=== PATIENT | male | born 1945 | race Caucasian/White ===

== ENCOUNTER 2019-03-18 02:26 | Inpatient (IN) ==
[2019-03-18] MEDS ORDERED: Sodium Chloride 0.9% 1,000 ML PRIMARY IV ONE ×3 (02:49→19:43)
[2019-03-18 02:57] LABS: BASOPHILS # (AUTO) 0.02 10*3/UL; BASOPHILS % (AUTO) 0.2 % (0-1); EOSINOPHILS # (AUTO) 0.04 10*3/UL; EOSINOPHILS % (AUTO) 0.5 % (0-8); Hematocrit [HCT] 48.2 % (42.0-52.0); LYMPHOCYTES # (AUTO) 0.93 10*3/uL; MEAN CORPUSCULAR HEMOGLOBIN 30.2 PG (27-31); MEAN CORPUSCULAR HGB CONC 33.2 g/dL (33-37); MEAN CORPUSCULAR VOLUME 91.1 FL (80-90); MEAN PLATELET VOLUME 10.1 FL (7.4-12.2); MONOCYTES # (AUTO) 0.66 10*3/UL (0.3-0.8); MONOCYTES % (AUTO) 7.8 % (5-15); NEUTROPHILS # (AUTO) 6.75 10*3/UL; NEUTROPHILS % (AUTO) 80.3 % (50-80); RED BLOOD COUNT 5.29 10^6/uL (4.70-6.10)
[2019-03-18 03:06] LABS: BLOOD UREA NITROGEN 32 mg/dL (7-22); BUN/CREATININE RATIO 21.33 (6-20); SERUM ALBUMIN 4.6 g/dL (3.5-4.8)
[2019-03-18 03:13] LABS: VENOUS PH 7.36 (7.32-7.42)
[2019-03-18 03:14] LABS: VENOUS PCO2 43.5 mmHg (45-55)
[2019-03-18 03:17] LABS: BILIRUBIN,URINE SMALL (NEG); CLARITY,URINE CLEAR (CLEAR); COLOR,URINE YELLOW (Y); GLUCOSE, URINE (UA) NEGATIVE (NEG); OCCULT BLOOD,URINE NEGATIVE (NEG); PROTEIN,URINE 30 mg/dl (NEG); UROBILINOGEN,URINE 0.2 EU/dL (0.2)
[2019-03-18 03:17] LABS: PLATELET MORPHOLOGY COMMENT NORMAL MORPHOLOGY (NORM); RBC MORPHOLOGY COMMENT NORMAL MORPHOLOGY (NORM); WBC MORPHOLOGY COMMENT NORMAL MORPHOLOGY (NORM)
[2019-03-18 03:18] LABS: URINE SAMPLE TYPE CATH SPECIMEN
[2019-03-18 03:22] LABS: BACTERIA,URINE RARE; RBC,URINE 0-1 /hpf; URINE CASTS FEW; URINE CRYSTALS RARE; URINE SPECIFIC GRAVITY - MAN 1.025; WBC,URINE 0-1
[2019-03-18 03:33] LABS: AMPHETAMINE SCREEN NEGATIVE (NEG); CANNABINOID SCREEN,URINE NEGATIVE (NEG); COCAINE SCREEN NEGATIVE (NEG); METHADONE URINE SCREEN NEGATIVE (NEG); METHAMPHETAMINES SCREEN,URINE NEGATIVE (NEG); OPIATE SCREEN,URINE NEGATIVE (NEG)
--- NOTE | 2019-03-18 04:01 | DI ---
EXAM: CT Head Without Intravenous Contrast CLINICAL HISTORY: ITS.REASON confusion Physician Notes: Tech Comments: TECHNIQUE: Axial computed tomography images of the head/brain without intravenous contrast. Coronal and sagittal reformatted images were created and reviewed. COMPARISON: No relevant prior studies available. FINDINGS: Brain: Severe chronic small vessel ischemic change. Global volume loss. No intracranial hemorrhage, mass effect or edema. No evolving territorial infarction. Ventricles: Unremarkable. No ventriculomegaly. Bones/joints: Unremarkable. No acute fracture. Soft tissues: Unremarkable. Sinuses: Unremarkable as visualized. No acute sinusitis. Mastoid air cells: Unremarkable as visualized. No mastoid effusion. Orbits: Bilateral lens replacements. IMPRESSION: Severe chronic small vessel ischemic change. Global volume loss. No acute intracranial abnormality.
--- NOTE | 2019-03-18 04:30 | PDOC ---
General Adult HPI - General Chief Complaint: General Medical Stated Complaint: DCD REPORTS PATIENT IS COMBATIVE Date Seen by Provider: 03/18/19 Time Seen by Provider: 02:45 Source: POSITIVE: EMS Exam Limitations: POSITIVE: No limitations Nurse's Notes Reviewed & Considered: Yes EMS Report Reviewed & Considered: Verbal - History of Present Illness Initial Comment: The patient is a 73-year-old male who is a resident of the [facility] on the Alzheimer's unit. Patient is transferred by ambulance to the emergency room because the patient has reportedly been "somnolent". In my discussions with the [facility] nursing staff, the patient has a history of dementia and his speech is normally very difficult to understand; his records from the [facility] states that he has "a facial ". The patient is frequently combative according to the [facility] staff and he does require medication with Ativan. Patient last received a dose of Ativan this evening. Patient was seen in the emergency room here yesterday morning with a chief complaint of vomiting times one, according to review of the emergency room records. At that time his CBC was normal, sodium was 146 and BUN was 23. long-term records reveal the patient is a full CODE STATUS. Nursing staff indicates that they're not aware of any falls. No fevers or chills. He does not appear to be in any pain. On arrival to the emergency room the patient is very somnolent but arousable and he will vocalize. Appropriately responsive to pain. He will not follow commands. Have you received a tetanus shot in the past 10 years?: Unknown Body Location Affected: REPORTS: Other (Confusion and somnolence as above; history of advanced dementia; the nurse at the [facility] staff thinks that he has a past history of alcohol abuse.) Timing: REPORTS: Gradual Duration: <24 hours Severity: Moderate Quality: REPORTS: Other (No apparent pain anywhere) Context: REPORTS: None Modifying Factors: improves with: Vomiting (Patient reportedly had an episode of vomiting yesterday, which precipitated his emergency room visit yesterday) Similar Symptoms Previously: Yes Recent Care Received: REPORTS: Recently Seen, Treated by Any Prior Injuries Related to Current Complaint?: No - Patient Home Medications Home Medications: Home Medications celecoxib 200 mg capsule 200 mg PO DAILY cap 03/16/19 sennosides 8.6 mg-docusate sodium 50 mg tablet 1 tab PO QDAY PRN tab 03/16/19 simvastatin 40 mg tablet 40 mg PO QHS 03/16/19 Acetaminophen [8Hr Arthritis Pain Relief] 650 mg PO Q4H PRN PRN 03/17/19 Buprenorphine 1 patch TOPICAL .WEEKLY 03/17/19 Hydroxyzine HCl 25 mg PO Q6H PRN PRN 03/17/19 LORazepam Inj [Ativan Inj] 2 mg IM Q4H PRN PRN 03/17/19 - Patient Allergies Allergies/Adverse Reactions: Allergies Allergy/AdvReac Type Severity Reaction Status Date / Time levofloxacin [From Levaquin] Allergy Severe PARALYSIS Verified 03/18/19 02:30 Past Medical History - heen HEENT History: Other (please comment) Additional HEENT History: b/l sensorineural hearing loss. b/l tinnitus Cardiovascular History: Hyperlipidemia Respiratory History: Denies History Gastrointestinal History: Other (please comment) Additional Gastrointestinal History: constipation Genitourinary History: Denies History Endocrine History: Denies History Musculoskeletal History: Osteoporosis, Osteoarthritis Neurological History: Aphasia Blood Disorders: Denies History Psychiatric History: Other (please comment) Additional Psychiatric History: dementia Male Reproductive History: Denies History Cancer History: Denies History In Past Year Been Physically Harmed or Verbally Threatened: No History of MDRO: No Tobacco Use: Never Smoker In the Past 12 Months, Have Used or Abuse Any Substance: None Previous Surgical History: No Significant Family History: No pertinent family hx Past Medical History Reviewed: Reviewed - No Changes ROS - Limitations ROS Limitations: Clinical Condition (Dementia and somnolence, probably due to recent Ativan) Constitution: REPORTS: Recent Illness (Reportedly had some vomiting yesterday morning) Cardiovascular: REPORTS: Denies Cardiac Symptoms Respiratory: REPORTS: Denies Resp Symptoms Neurological: REPORTS: Headache Gastrointestinal: REPORTS: Vomitting (Yesterday according to recent medical) Endocrine: REPORTS: Denies Symptoms Musculoskeletal: REPORTS: Denies MS Symptoms Genitourinary: REPORTS: Denies Symptoms Eyes: REPORTS: Denies Symptoms ENT: REPORTS: Denies Symptoms Skin: REPORTS: Denies Skin Symptoms Lympathic: REPORTS: Denies Lympathic Symptoms Immunologic: POSITIVE: Denies Symptoms Psychiatric: POSITIVE: Confusion General Adult Exam - General Appearance General Appearance: POSITIVE: No Acute Distress, No Evidence of Trauma, Gita rgic - HEENT HEENT: POSITIVE: Head Inspection Nml, Eyes Inspection Nml, Ears Inspection Nml, Nose Inspection Nml, Oral/Dental Inspect. Nml, Pharynx Inspect. Nml, PERRL, EOMI - Pupils Pupil Size: 3 mm: Bilateral (PERRLA) - Neck Neck: POSITIVE: Normal Inspection, Thyroid Normal - Respiratory Respiratory: POSITIVE: No Respiratory Distress, Breath Sounds Normal, Chest Non- Tender - Cardiovascular Cardiovascular: POSITIVE: Regular Rate & Rhythm, No Murmur, No Gallop, PMI Normal Peripheral Pulses: Radial (R): 2+, Radial (L): 2+ - Abdomen Abdomen: Soft: (All Quadrants), Normal Bowel Sounds: (All Quadrants), Denies Tenderness: (All Quadrants), No Splenomegaly: (All Quadrants), No Hepatomegaly: (All Quadrants), No Guarding: (All Quadrants), No Rebound: (All Quadrants), No Palpable Pulse: (All Quadrants), No Palpabale Mass: (All Quadrants), No Distention: (All Quadrants), No Rigidity: (All Quadrants) - Back Back: POSITIVE: Normal Inspection - Skin Skin: POSITIVE: Normal Color, Warm, Dry, No Rash - Extremities Extremity: Non-Tender: (All Extremities), Normal ROM: (All Extremities), Normal Inspection: (All Extremities) - Neurological / 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 NEGATIVE: Affect Apporpriate (Patient somnolent and when aroused confused; this is reportedly a chronic condition according to [facility] staff), Oriented X3 General Adult Progress - Results Reviewed by me Xrays/CTs/US Reviewed by me: Yes Discussed with Radiologist: Yes Radiology Findings: CT scan head without contrast normal except for age-related changes according to radiologist Lab Results Reviewed by Me: Yes (BUN now 32, sodium now up to 149. Total creatine kinase 599) Lab Results:: Laboratory Results 03/18/19 03/18/19 03/18/19 02:49 02:50 02:50 WBC 8.41 RBC 5.29 Hgb 16.0 Hct 48.2 MCV 91.1 H MCH 30.2 MCHC 33.2 RDW Std Deviation 45.6 RDW Coeff of Juanita 13.7 Plt Count 215 MPV 10.1 Immature Gran % (Auto) 0.1 Neut % (Auto) 80.3 H Lymph % (Auto) 11.1 [place] % (Auto) 7.8 Eos % (Auto) 0.5 Baso % (Auto) 0.2 Immature Gran # (Auto) 0.01 Neut # (Auto) 6.75 Lymph # (Auto) 0.93 [place] # (Auto) 0.66 Eos # (Auto) 0.04 Baso # (Auto) 0.02 WBC Morphology Comment Normal morphology Plt Morphology Comment Normal morphology RBC Morph Comment Normal morphology VBG pH 7.36 VBG pCO2 43.5 L VBG HCO3 24.7 VBG Base Excess -1 Sodium 149 H Potassium 4.0 Chloride 109 Carbon Dioxide 23 Anion Gap 17 BUN 32 H Creatinine 1.5 BUN/Creatinine Ratio 21.33 H Glucose 125 H Calculated Osmolality 315.0 H Calcium 10.1 Total Bilirubin 1.0 AST 45 ALT 24 Alkaline Phosphatase 80 Total Creatine Kinase 599 H Troponin I C-Reactive Protein 2.0 H Total Protein 7.6 Albumin 4.6 Globulin 3.0 Albumin/Globulin Ratio 1.50 Ur Collection Type Urine Color Urine Clarity Urine pH Ur Specific [place] U Specif Grav (Refrac) Urine Protein Urine Glucose (UA) Urine Ketones Urine Occult Blood Urine Nitrate Urine Bilirubin Urine Urobilinogen Ur Leukocyte Esterase Urine RBC Urine WBC Ur Squamous Epith Cells Ur Renal Epithelial Cell Urine Crystals Urine Bacteria Urine Casts Urine Mucus Urine Trichomonas Urine Yeast Ur Culture Indicated? Urine Opiates Screen Ur Buprenorphine Ur Oxycodone Screen Urine Methadone Screen Ur Propoxyphene Screen Acetaminophen < 10.0 Barbiturate Screen U Tricyclic Antidepress Phencyclidine Screen Amphetamines Screen U Methamphetamines Scrn Benzodiazepines Screen Cocaine Screen U Marijuana (THC) Screen Serum Alcohol < 10 03/18/19 03/18/19 02:50 03:10 WBC RBC Hgb Hct MCV MCH MCHC RDW Std Deviation RDW Coeff of Juanita Plt Count MPV Immature Gran % (Auto) Neut % (Auto) Lymph % (Auto) [place] % (Auto) Eos % (Auto) Baso % (Auto) Immature Gran # (Auto) Neut # (Auto) Lymph # (Auto) [place] # (Auto) Eos # (Auto) Baso # (Auto) WBC Morphology Comment Plt Morphology Comment RBC Morph Comment VBG pH VBG pCO2 VBG HCO3 VBG Base Excess Sodium Potassium Chloride Carbon Dioxide Anion Gap BUN Creatinine BUN/Creatinine Ratio Glucose Calculated Osmolality Calcium Total Bilirubin AST ALT Alkaline Phosphatase Total Creatine Kinase Troponin I < 0.012 C-Reactive Protein Total Protein Albumin Globulin Albumin/Globulin Ratio Ur Collection Type Cath specimen Urine Color Yellow Urine Clarity Clear Urine pH 5.0 Ur Specific [place] 1.025 U Specif Grav (Refrac) 1.025 Urine Protein 30 A Urine Glucose (UA) Negative Urine Ketones 15 Urine Occult Blood Negative Urine Nitrate Negative Urine Bilirubin Small Urine Urobilinogen 0.2 Ur Leukocyte Esterase Negative Urine RBC 0-1 Urine WBC 0-1 Ur Squamous Epith Cells None Ur Renal Epithelial Cell None Urine Crystals Rare Urine Bacteria Rare Urine Casts Few Urine Mucus Moderate Urine Trichomonas None Urine Yeast None Ur Culture Indicated? Culture not set Urine Opiates Screen Negative Ur Buprenorphine Positive H Ur Oxycodone Screen Negative Urine Methadone Screen Negative Ur Propoxyphene Screen Negative Acetaminophen Barbiturate Screen Negative U Tricyclic Antidepress Negative Phencyclidine Screen Negative Amphetamines Screen Negative U Methamphetamines Scrn Negative Benzodiazepines Screen Positive H Cocaine Screen Negative U Marijuana (THC) Screen Negative Serum Alcohol CBC and BMP: 03/18/19 02:50 03/18/19 02:50 EKG Interpreted/Reviewed By Me:: Yes (normal sinus rhythm; normal) EKG Interpretation:: POSITIVE: Normal Sinus Rhythm, Normal Rate, Normal Intervals, Normal Yeso, Normal QRS, Normal ST/T - Patient's Progress Pain Medication Addressed: POSITIVE: Not Applicable School/Work Release Addressed: POSITIVE: Not Applicable Re-Examine Time: 04:20 Re-Examine Comment: Patient becoming more active and alert. Toxicology screen was positive for benzodiazepines and pupil nor freeing. Patient is more dehydrated now than he was less than 24 hours ago. His sodium is now 149 and w as 146 yesterday. BUN is up to 32, it was 23 yesterday morning. Blood cultures were drawn. Total creatine kinase 599. Nursing staff at [facility] is not aware that he's had any further vomiting. Case discussed with hospitalist, Dr. Roberts, who has admitted the patient. Status: POSITIVE: Improved (More active and alert), Re-Examined Antibiotics Given: No - Consult Consult (If Yes, Name of Consulting MD & Time Called): Yes (Dr. Roberts, hospitalist, [id number]) Consulting MD will see pt:: POSITIVE: [facility] [place] Patient Care Time - Estimated PCT Patient Care Time (In Minutes): 50 Vital Signs - Recent Vital Signs Vital Signs: Vital Signs (Last 8 hours) Temp Pulse Resp BP Pulse Ox 03/18/19 02:36 97.7 F 111 H 14 113/84 96 - VS Reviewed Vital Signs Reviewed: Yes Discharge Clinical Impression: Dehydration, Confusion, Dementia Discharge Disposition: Admit to Inpatient Condition: Fair Follow Up With: JULIO CESAR GUERRA [Primary Care Provider] - Date Decision to Admit to Inpatient: 03/18/19 Time Decision to Admit to Inpatient: 04:00
[2019-03-18] MEDS ORDERED: DOCUSATE 100 MG CAPSULE PO PRN (04:52)
[2019-03-18] MEDS ORDERED: D5W 1,000 ML PRIMARY IV SCH ×2 (04:52→14:53)
[2019-03-18] MEDS ORDERED: ONDANSETRON 4 MG/2 ML VIAL IVP PRN ×2 (04:52→14:53)
[2019-03-18] MEDS ORDERED: CALCIUM CARBONATE 500 MG (TUMS) CHEWABLE TABLET PO PRN (04:52)
[2019-03-18] MEDS ORDERED: ACETAMINOPHEN 325 MG TABLET PO PRN ×2 (04:52→08:30)
[2019-03-18] MEDS ORDERED: LIDOCAINE W/ SODIUM BICARB 0.5 ML SYR SUBD PRN ×2 (04:52→14:53)
[2019-03-18] MEDS ORDERED: ACETAMINOPHEN PO PRN (04:52)
[2019-03-18] MEDS ORDERED: Senna/Docusate Tab 1 TAB TAB PO PRN (04:52)
[2019-03-18] MEDS ORDERED: LIDOCAINE HCL 2 % 10 ML JELLY URO-JECT TOPICAL PRN (04:54)
[2019-03-18] MEDS ORDERED: Sodium Chloride 0.9% 1,000 ML PRIMARY IV SCH (05:00)
[2019-03-18] MEDS ORDERED: HALOPERIDOL LACTATE 5 MG/1 ML AMPULE IM ONE (05:19)
[2019-03-18] MEDS ORDERED: HALOPERIDOL LACTATE 5 MG/1 ML AMPULE IVP ONE (05:19)
[2019-03-18] MEDS ORDERED: HALOPERIDOL LACTATE 5 MG/1 ML AMPULE ONE (05:22)
[2019-03-18 05:25] LABS: BLOOD UREA NITROGEN 32 mg/dL (7-22); BUN/CREATININE RATIO 22.85 (6-20)
[2019-03-18] MEDS ORDERED: DIAZEPAM 10 MG/2 ML (5 MG/1 ML) CARPUJECT IVP ONE ×2 (05:31→05:57)
[2019-03-18] MEDS ORDERED: DIAZEPAM 10 MG/2 ML (5 MG/1 ML) CARPUJECT ONE (05:33)
[2019-03-18] MEDS ORDERED: DIAZEPAM 10 MG/2 ML (5 MG/1 ML) CARPUJECT IVP PRN ×3 (05:37→14:53)
[2019-03-18] MEDS ORDERED: HALOPERIDOL LACTATE 5 MG/1 ML AMPULE IVP PRN (05:37)
[2019-03-18] MEDS ORDERED: Prochlorperazine Edisylate Inj 10mg/2ml vial IVP PRN ×2 (05:42→14:53)
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
[2019-03-18] MEDS: HEPARIN 5000 UNIT/1 ML SUBCUT SCH ×3 (07:37→21:04)
[2019-03-18] MEDS: D5W 1,000 ML PRIMARY IV SCH ×2 (07:38→14:25)
--- NOTE | 2019-03-18 08:02 | DI ---
XR CXR 1VW 03/18/2019 2:49 AM HISTORY: [facility] [place] DI ^confusion Comparison: Acute abdominal series 03/17/2000 maintained. Findings: A single portable frontal view of the chest is submitted. Images demonstrate normal aeration without focal consolidation. There is no large pneumothorax or ple ural effusion. The cardiomediastinal silhouette is within normal with atheromatous calcifications in the arch of the tortuous thoracic aorta. There is slight asymmetry of the aortic arch. The osseous st ructures are grossly unremarkable. Impression: 1. No radiographic evidence of acute cardiopulmonary disease. 2. There is slight asymmetry of the aortic arch. A CT angiogram of the thoracic aorta may be obtained for further characterization as clinically indicated.
[2019-03-18] MEDS ORDERED: ACETAMINOPHEN 500 MG TABLET PO SCH (09:00)
[2019-03-18 10:27] LABS: BLOOD UREA NITROGEN 31 mg/dL (7-22); BUN/CREATININE RATIO 22.14 (6-20)
[2019-03-18] MEDS ORDERED: GEODON 20 MG IM SCH (11:12)
[2019-03-18] MEDS ORDERED: RIVASTIGMINE 4.6 MG/24 HR PATCH TRANSDERM ONE (11:13)
[2019-03-18] MEDS ORDERED: ChlordiazePOXIDE 25mg Cap (ETOH withdrawal) PO PRN (11:50)
[2019-03-18] MEDS ORDERED: LORazepam Inj(ETOH withdrawal) 2 MG/ML VIAL IVP PRN ×2 (11:50→14:53)
[2019-03-18] MEDS ORDERED: Dexmedetomidine/NS 400 MCG/100 ML INFUS..BTL IV SCH ×2 (12:15→14:53)
[2019-03-18] MEDS: TAMSULOSIN 0.4 MG CAPSULE PO SCH ×2 (12:30→12:31)
[2019-03-18] MEDS ORDERED: ZIPRASIDONE 20 MG VIAL IM SCH (13:45)
[2019-03-18] MEDS ORDERED: ETOMIDATE 2 MG/1 ML - 20 ML IVP ONE ×2 (15:14→15:30)
[2019-03-18] MEDS ORDERED: SUCCINYLCHOLINE CHLORIDE 20 MG/1 ML - 10 ML ONE (15:14)
[2019-03-18] MEDS ORDERED: ROCURONIUM 10 MG/1 ML - 5 ML VIAL IVP ONE ×2 (15:30→15:33)
[2019-03-18 15:47] LABS: BLOOD UREA NITROGEN 25 mg/dL (7-22)
[2019-03-18] MEDS: Midazolam Inj 100 MG in Sodium Chloride 0.9% 80 ML IV SCH ×3 (16:20→22:01)
--- NOTE | 2019-03-18 17:25 | DI ---
XR CXR 1VW 03/18/2019 4:36 PM HISTORY: [facility] [place] DI ^confirm central line placement Comparison: Portable chest x-ray from earlier the same day. Findings: A single portable frontal view of the chest is submitted. There is an endotracheal tube mid line with the tip approximately 3.6 cm above the luiz. There is a right IJ central venous catheter with the tip projecting over the cavoatrial junction. An enteric tube courses midline with the side-p ort at the level of the gastroesophageal junction and the tip projecting over the left upper quadrant . Images demonstrate hypoinflation without focal consolidation. There is no large pneumothorax or pleur al effusion. The cardiomediastinal silhouette is within normal limits with atheromatous calcification s in the aortic arch. The osseous structures are not significantly changed. Impression: 1. Lines and tubes as above. 2. No radiographic evidence of acute cardiopulmonary disease.
[2019-03-18 17:31] LABS: BLOOD UREA NITROGEN 29 mg/dL (7-22); BUN/CREATININE RATIO 26.36 (6-20); SERUM ALBUMIN 3.7 g/dL (3.5-4.8)
--- NOTE | 2019-03-18 17:41 | PDOC(PROG) ---
General Note Progress Note: Intubation note. I was called to the ICU because the patient's deteriorating respiratory status and the need for intubation. An IV was present in the patient's right arm and decision was made to continue with intubation. Patient received 1.2 mg/kg of rocuronium for a total of 100 mg, and 25 mg of etomidate. Under my direct supervision respiratory therapist Oscar intubated using a Chirinos straight blade and an 8 endotracheal tube. He is able to pass the tube with the first attempt and good breath sounds were heard bilaterally with fogging of the tube, color change of the CO2 monitor, and no breath sounds appreciated in the belly. A endotracheal tube was then passed and post intubation x-ray showed endotracheal tube at the luiz. It was pulled back approximately 2 cm and secured. The internal jugular central line placed by Dr. Roberts was in good position and the orogastric tube was in good position. Patient was started on Precedex.
[2019-03-18 18:48] LABS: ABG PCO2 40 MMHG (34-38); ABG PO2 81 MMHG (65-75); COLLECTION SITE L RADIAL
[2019-03-18 18:49] LABS: ABG BASE EXCESS 0 MMOL/L (-2-2); ABG OXYGEN SATURATION 96 % (90-100); ALLEN TEST Y
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
--- NOTE | 2019-03-18 19:02 | PROCEDURE1 ---
Procedure - - Procedure Performed: Central Line : Non Tunneled Procedure Note: Procedure performed: Right Internal jugular central venous catheter placement Indication for procedure: Loss of IV, respiratory failure in the setting of apparent alcohol withdrawal, need for continued sedation, need for airway protection, need for medications, risks including possible arterial puncture, pneumothorax, and localized pain. Benefits for medication administration, blood draws, hemodynamic monitoring, and management of those noted in indications for procedure above. Consent was implied as I could not get a signature from the patient due to his mental state. His nephew had instructed me earlier to do everything I could to support the patient Description of procedure: The patient was prepped and draped in the usual fashion with a full body drape. Ultrasound guidance was used to identify the right internal jugular vein. The area was cleansed with chlorhexidine. Lidocaine was used for local anesthesia. Using an introducer needle attached to a 5 mL syringe, this was inserted and angled towards the ipsilateral nipple, with ultrasound guidance as well. There was a flash of venous blood as the internal jugular vein was cannulated via the introducer needle. A guidewire was inserted through the needle into the internal jugular vein and the needle was removed over the wire. A 10 blade was then used to perform a small dermatotomy at the needle insertion site. The venous dilator was then placed over the guidewire using Seldinger technique, and then removed. 4 port central venous catheter was then placed over the guidewire inserted into the internal jugular vein and the guidewire was removed. All ports were flushed with normal saline. All ports had draw back. The catheter was sutured into place, and lying position was confirmed with chest x-ray. A postprocedure x-ray showed lying in the correct position with the tip just above the cavoatrial junction, no evidence of pneumothorax. I personally reviewed the chest X-ray. Complications: No apparent complications at the time of the procedure Disposition: Patient remains in the ICU in critical condition
[2019-03-18] MEDS ORDERED: FOLIC ACID 5 MG/1 ML - 10 ML IVP ONE (20:04)
[2019-03-18] MEDS ORDERED: Lactated Ringers 500 ML PRIMARY IV ONE (23:16)
[2019-03-19] MEDS: Lactated Ringers 1,000 ML PRIMARY IV SCH ×4 (00:51→22:55)
[2019-03-19] MEDS: Midazolam Inj 100 MG in Sodium Chloride 0.9% 80 ML IV SCH ×4 (00:57→19:35)
[2019-03-19 03:03] LABS: VENOUS PH 7.43 (7.32-7.42)
[2019-03-19 03:12] LABS: BLOOD UREA NITROGEN 29 mg/dL (7-22); BUN/CREATININE RATIO 18.12 (6-20)
[2019-03-19 03:13] LABS: HEMOGLOBIN A1C 6.03 % (4.2-6.0)
[2019-03-19] MEDS ORDERED: Lactated Ringers 500 ML PRIMARY IV ONE (03:43)
[2019-03-19] MEDS: HEPARIN 5000 UNIT/1 ML SUBCUT SCH ×3 (05:25→22:25)
[2019-03-19] MEDS ORDERED: SODIUM CL 0.9% FOR INH 3 ML NEB NEB ONE (07:41)
[2019-03-19 08:20] LABS: BLOOD UREA NITROGEN 30 mg/dL (7-22)
[2019-03-19] MEDS: TAMSULOSIN 0.4 MG CAPSULE PO SCH (08:46)
[2019-03-19] MEDS ORDERED: FOLIC ACID 5 MG/1 ML - 10 ML IVP SCH (09:00)
[2019-03-19] MEDS ORDERED: CYANOCOBALAMIN (VITAMIN B-12) 1,000 MCG TABLET.ER PO SCH (09:00)
[2019-03-19] MEDS ORDERED: RIVASTIGMINE 4.6 MG/24 HR PATCH TRANSDERM SCH (09:00)
[2019-03-19] MEDS: RIVASTIGMINE 4.6 MG/24 HR PATCH TRANSDERM SCH (10:41)
--- NOTE | 2019-03-19 11:00 | PDOC(PROG) ---
Date of Service: 03/19/19 Time of Service: 10:53 Interval History: Discussed with the patient's nephew, discussed with eICU doctor. Very concerned this patient has developed what appears to be oliguric kidney failure. 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 I think the kidney function has gotten worse in the setting of recent dehydration, hypernatremia, and anti-inflammatories for osteoarthritis. Patient has not been overbreathing the vent. We stopped Versed. No response to pain this morning. RN reporting some secretions out of the endotracheal tube Objective : Data - Labs CBC and BMP: 03/18/19 02:50 03/19/19 08:08 Additional Lab Results: 03/18/19 03/18/19 03/19/19 15:48 15:48 02:46 Calculated Osmolality Calcium Total Creatine Kinase 529 H Vitamin B12 630 Serum Folate > 20.0 H TSH 1.37 Free T4 1.43 03/19/19 08:08 Calculated Osmolality 305.0 H Calcium 8.9 Total Creatine Kinase Vitamin B12 Serum Folate TSH Free T4 Objective : Exam - General General Appearance: No Acute Distress Additional General Exam Details: Vital Signs - Last Taken Temperature 99.1 F 03/19/19 09:00 Pulse Rate 86 03/19/19 10:00 Respiratory Rate 18 03/19/19 10:00 Blood Pressure 151/85 03/19/19 10:00 Pulse Ox 97 03/19/19 10:00 This is on FiO2 of 21% on his ventilatory settings. - ENT ENT Exam: Mucous Membranes Moist - Neck Neck Exam: JVP is not Raised - Respiratory Respiratory Exam: Clear to Auscultation - Bilaterally, Breathing Non Labored - Cardiovascular Cardiovascular Exam: RRR, No Murmur, No Clicks, No Gallops, No Rubs, No JVD - GI/Abdominal GI/Abdominal Exam: Normal Bowel Sounds, Non Tender, Non Distended, Soft - Extremities Extremities Exam: No Clubbing Present, No Edema Present, No Cyanosis Present - Neurological Additional Neurological Exam Details: Currently sedated on ventilator. No response to nail bed compression or pain stimuli. - Central Line Examination Central Line Type: Triple Lumen Cath Central Line Location: Internal jugular (R) Central Line Site Observations: Asymptomatic Assessment and Plan - Patient Problems (1) Respiratory failure Current Visit: Yes Status: Acute Code(s): J96.90 - Respiratory failure, unspecified, unspecified whether with hypoxia or hypercapnia Qualifiers: Chronicity: acute Respiratory failure complication: hypoxia Qualified Code(s): J96.01 - Acute respiratory failure with hypoxia (2) Acute renal failure Current Visit: Yes Status: Acute Code(s): N17.9 - Acute kidney failure, unspecified Qualifiers: Acute renal failure type: with acute tubular necrosis Qualified Code(s): N17.0 - Acute kidney failure with tubular necrosis (3) Alcohol withdrawal Current Visit: Yes Status: Acute Code(s): F10.239 - Alcohol dependence with withdrawal, unspecified Qualifiers: Complication of substance-induced condition: with delirium Qualified Code(s): F10.231 - Alcohol dependence with withdrawal delirium (4) Rhabdomyolysis Current Visit: Yes Status: Acute Code(s): M62.82 - Rhabdomyolysis Qualifiers: Rhabdomyolysis type: non-traumatic Qualified Code(s): M62.82 - Rhabdomy olysis (5) Dementia Current Visit: Yes Status: Acute Code(s): F03.90 - Unspecified dementia without behavioral disturbance Qualifiers: Dementia type: Alzheimer's disease Alzheimer's disease onset: early-onset Dementia behavioral disturbance: with behavioral disturbance Qualified Code(s): G30.0 - Alzheimer's disease with early onset; F02.81 - Dementia in other diseases classified elsewhere with behavioral disturbance (6) Traumatic brain injury Current Visit: Yes Status: Acute Code(s): S06.9X9A - Unspecified intracranial injury with loss of consciousness of unspecified duration, initial encounter Qualifiers: Encounter type: subsequent encounter Loss of consciousness presence/duration: with LOC of unspecified duration Qualified Code(s): S06.9X9D - Unspecified intracranial injury with loss of consciousness of unspecified duration, subsequent encounter (7) Osteoarthritis Current Visit: Yes Status: Acute Code(s): M19.90 - Unspecified osteoarthritis, unspecified site Qualifiers: Osteoarthritis location: unspecified site Osteoarthritis type: primary Qualified Code(s): M19.91 - Primary osteoarthritis, unspecified site (8) Dehydration Current Visit: Yes Status: Acute Code(s): E86.0 - Dehydration (9) Rhabdomyolysis due to statin therapy Current Visit: Yes Status: Acute Code(s): M62.82 - Rhabdomyolysis (10) Hypernatremia Current Visit: Yes Status: Acute Code(s): E87.0 - Hyperosmolality and hypernatremia (11) Hyperglycemia Current Visit: Yes Status: Acute Code(s): R73.9 - Hyperglycemia, unspecified (12) Expressive aphasia Current Visit: Yes Status: Chronic Code(s): R47.01 - Aphasia - Assessment / Plan Additional Assessment/Plan Details: I think the acute renal failure is multifactorial, probably ATN, from dehydration with hypernatremia, anti-inflammatories, and probable postobstructive kidney failure with the enlarged prostate is my suspicion. Order ultrasound to look at kidneys. Get urinalysis, urine sodium, urine creatinine. I discussed with the eICU, they may consider some albumin doses today. He is not a dialysis candidate. I spoke with his nephew regarding this. The ne phew agrees. Kobi spring does not to transfer the patient to a higher level of care. He is not interested in dialysis for his uncle. We agreed that we would see where the kidneys would go in the next 24-48 hours. If no improvement, will strongly consider withdrawal of care. In terms of withdrawal issues and sedation issues, we will stop the Versed drip and do a sedation vacation and see where the patient is at in terms of mental status but I expect that some of these metabolites will be in his system for a while. We will resume if necessary. Labs at 2 PM this afternoon. Prognosis extremely guarded. Total critical care time, 40 minutes, no overlap.
--- NOTE | 2019-03-19 11:29 | DI ---
US Retroperitoneum 03/19/2019 9:01 AM [place] [facility] [place] Comparison: None. Technique: Routine transabdominal dow scale and color Doppler ultrasound of the kidneys and bladder was performed. Findings: The right kidney measures 11.3 cm in length and the left kidney measures 12.2 cm in length . Both kidneys demonstrate normal cortical thickness and echogenicity. The bilateral kidneys show no evidence of hydronephrosis, calculi, or mass. The urinary bladder is decompressed with a Sherwood cathet er in place. Impression: 1. Normal sonographic morphology of the bilateral kidneys. 2. The urinary bladder is decompressed with a Sherwood catheter in place.
[2019-03-19] MEDS: Albumin Human Soln 25% 25 GM/100 ML IV.SOLN IV SCH ×3 (11:35→20:43)
[2019-03-19 13:08] LABS: BILIRUBIN,URINE NEGATIVE (NEG); CLARITY,URINE Slightly Cloudy (CLEAR); COLOR,URINE YELLOW; GLUCOSE, URINE (UA) NEGATIVE (NEG); OCCULT BLOOD,URINE MODERATE (NEG); PH,URINE 5.5 (5.0-8.5); PROTEIN,URINE >300 mg/dl (NEG); UROBILINOGEN,URINE 0.2 mg/dL (0.2)
[2019-03-19 13:10] LABS: BACTERIA,URINE MODERATE; RBC,URINE 25-50 /hpf; SQUAMOUS EPITHELIAL CELL,UR FEW; URINE SAMPLE TYPE VOIDED SPECIMEN
[2019-03-19 13:11] LABS: WBC,URINE 25-50
[2019-03-19 14:39] LABS: BASOPHILS # (AUTO) 0.02 10*3/UL; BASOPHILS % (AUTO) 0.2 % (0-1); EOSINOPHILS # (AUTO) 0.02 10*3/UL; EOSINOPHILS % (AUTO) 0.2 % (0-8); Hematocrit [HCT] 42.6 % (42.0-52.0); Hemoglobin [HGB] 13.7 g/dL (14.0-18.0); LYMPHOCYTES # (AUTO) 0.82 10*3/uL; MEAN CORPUSCULAR HEMOGLOBIN 30.5 PG (27-31); MEAN CORPUSCULAR HGB CONC 32.2 g/dL (33-37); MEAN CORPUSCULAR VOLUME 94.9 FL (80-90); MEAN PLATELET VOLUME 10.4 FL (7.4-12.2); MONOCYTES # (AUTO) 0.66 10*3/UL (0.3-0.8); NEUTROPHILS # (AUTO) 6.67 10*3/UL; NEUTROPHILS % (AUTO) 81.5 % (50-80); RED BLOOD COUNT 4.49 10^6/uL (4.70-6.10)
[2019-03-19 14:56] LABS: BLOOD UREA NITROGEN 32 mg/dL (7-22); SERUM ALBUMIN 3.6 g/dL (3.5-4.8)
[2019-03-19 15:17] LABS: PLATELET MORPHOLOGY COMMENT NORMAL MORPHOLOGY (NORM); RBC MORPHOLOGY COMMENT NORMAL MORPHOLOGY (NORM); WBC MORPHOLOGY COMMENT NORMAL MORPHOLOGY (NORM)
--- NOTE | 2019-03-19 16:16 | EKG ---
[address] [address] Measurements Intervals [place] Rate: 96 P: 69 [place]: 141 QRS: -14 QRSD: 103 T: 64 QT: 360 QTc: 413 Interpretive Statements SINUS RHYTHM No previous ECG available for comparison Electronically Signed On 03-19-19 17:26:12 MDT by Dylan Thrasher [email or web address]
[2019-03-19] MEDS ORDERED: cefTRIAXone Inj 2 GM in Sodium Chloride 0.9% 100 ML IV SCH (18:45)
[2019-03-19] MEDS ORDERED: [UNRECOGNIZED DRUG - OTHER] IV SCH (21:00)
[2019-03-19] MEDS ORDERED: THIAMINE IV SCH (21:00)
[2019-03-19] MEDS ORDERED: MULTIVITAMIN IV SCH (21:00)
[2019-03-19] MEDS ORDERED: FOLIC ACID IV SCH (21:00)
[2019-03-19] MEDS: ZIPRASIDONE 20 MG VIAL IM SCH (22:27)
[2019-03-19] MEDS ORDERED: LORazepam 2 MG/1 ML VIAL IVP PRN (22:30)
[2019-03-19] MEDS: fentaNYL Inj 100 MCG/2 ML VIAL IVP PRN (22:48)
[2019-03-19] MEDS ORDERED: Water, Sterile for Inj 10 ML ONE ×2 (23:03→23:08)
[2019-03-20] MEDS: fentaNYL Inj 100 MCG/2 ML VIAL IVP PRN ×2 (04:25→10:02)
[2019-03-20 05:07] LABS: BASOPHILS # (AUTO) 0.01 10*3/UL; BASOPHILS % (AUTO) 0.2 % (0-1); EOSINOPHILS # (AUTO) 0.06 10*3/UL; EOSINOPHILS % (AUTO) 0.9 % (0-8); Hematocrit [HCT] 38.2 % (42.0-52.0); Hemoglobin [HGB] 12.5 g/dL (14.0-18.0); LYMPHOCYTES # (AUTO) 0.85 10*3/uL; MEAN CORPUSCULAR HEMOGLOBIN 30.3 PG (27-31); MEAN CORPUSCULAR HGB CONC 32.7 g/dL (33-37); MEAN CORPUSCULAR VOLUME 92.7 FL (80-90); MEAN PLATELET VOLUME 10.4 FL (7.4-12.2); MONOCYTES # (AUTO) 0.51 10*3/UL (0.3-0.8); MONOCYTES % (AUTO) 7.8 % (5-15); NEUTROPHILS # (AUTO) 5.09 10*3/UL; NEUTROPHILS % (AUTO) 78.1 % (50-80); RED BLOOD COUNT 4.12 10^6/uL (4.70-6.10)
[2019-03-20] MEDS: HEPARIN 5000 UNIT/1 ML SUBCUT SCH ×3 (05:14→21:22)
[2019-03-20 05:18] LABS: ABG PCO2 41 MMHG (34-38); ABG PH 7.33 (7.35-7.45); ABG PO2 79 MMHG (65-75)
[2019-03-20 05:19] LABS: ABG BASE EXCESS -4 MMOL/L (-2-2); ABG OXYGEN SATURATION 95 % (90-100); ALLEN TEST passed
[2019-03-20 05:24] LABS: PLATELET MORPHOLOGY COMMENT NORMAL MORPHOLOGY (NORM); RBC MORPHOLOGY COMMENT NORMAL MORPHOLOGY (NORM); WBC MORPHOLOGY COMMENT NORMAL MORPHOLOGY (NORM)
[2019-03-20 05:30] LABS: BLOOD UREA NITROGEN 36 mg/dL (7-22); SERUM ALBUMIN 3.4 g/dL (3.5-4.8)
[2019-03-20] MEDS: Lactated Ringers 1,000 ML PRIMARY IV SCH (06:00)
[2019-03-20] MEDS ORDERED: SODIUM CL 0.9% FOR INH 3 ML NEB NEB ONE ×2 (06:02→19:51)
[2019-03-20] MEDS: Midazolam Inj 100 MG in Sodium Chloride 0.9% 80 ML IV SCH (06:20)
--- NOTE | 2019-03-20 08:40 | DI ---
XR CXR 1VW 03/20/2019 7:00 AM HISTORY: [facility] [place] ^Intubated Comparison: Portable chest x-ray 03/18/2019. Findings: A single portable frontal view of the chest is submitted. An endotracheal tube is in place with the tip 2.9 cm above the luiz. An enteric tube courses midline with the tip proximal to the ga stroesophageal junction. There is a right IJ central venous catheter with the tip projecting over the cavoatrial junction. Images demonstrate hypoinflation with patchy bibasilar airspace disease. There is no large pneumothor ax or pleural effusion. The cardiomediastinal silhouette is at the upper limits of normal with promin ent pulmonary vasculature that could represent technique versus early pulmonary edema in the setting of heart failure. The osseous structures are not significantly changed.
[2019-03-20] MEDS ORDERED: SODIUM CL FOR INHALATION 15 ML NEB NEB ONE (09:56)
[2019-03-20] MEDS ORDERED: HEPARIN 500 UNIT/5 ML SYRINGE FOR CENTRAL LINE IVP ONE ×2 (10:12→14:28)
[2019-03-20] MEDS: ZIPRASIDONE 20 MG VIAL IM SCH (10:25)
[2019-03-20] MEDS: TAMSULOSIN 0.4 MG CAPSULE PO SCH (10:34)
[2019-03-20] MEDS: RIVASTIGMINE 4.6 MG/24 HR PATCH TRANSDERM SCH (10:44)
[2019-03-20] MEDS ORDERED: FUROSEMIDE 10 MG/1 ML - 4 ML IVP ONE ×2 (11:05→16:36)
[2019-03-20 11:39] LABS: BILIRUBIN,URINE NEGATIVE (NEG); CLARITY,URINE CLEAR (CLEAR); COLOR,URINE YELLOW; GLUCOSE, URINE (UA) NEGATIVE (NEG); OCCULT BLOOD,URINE MODERATE (NEG); PROTEIN,URINE NEGATIVE (NEG); UROBILINOGEN,URINE 0.2 mg/dL (0.2)
[2019-03-20 12:03] LABS: BACTERIA,URINE FEW; URINE SAMPLE TYPE CLEAN CATCH URINE
--- NOTE | 2019-03-20 13:43 | PDOC(PROG) ---
Date of Service: 03/20/19 Time of Service: 13:42 Interval History: Seen and evaluated. We are holding sedation. Had long discussions with the patient's sister, Sofya, patient's nephew, Kobi, and eICU doctor as well. At this point, we would like to try and let the patient's sedation wear off and extubate if we can get the patient through breathing trial. This might take a period of 24-48 hours. His sister confirmed that he on 2 separate occasions told her that he did not want any CPR. I spoke with Kobi about this and he was comfortable instructing us to do a DO NOT RESUSCITATE. He felt in particular with the confirmed conversations with his sister that the change in his CODE STATUS would would be more desk representative that the patient's wishes and he was again comfortable with that. We repeated urinalysis, to suggest ATN. Fractional excretion of urea suggest a prerenal azotemia with a value of 5.0%. Fractional excretion of sodium is at 4.1% which suggests post renal obstruction however that has been proven elsewise with Sherwood catheter in place, the bladder is decompressed, and renal ultrasound was normal. His urine output is picking up her RN. Objective : Data - Labs CBC and BMP: 03/20/19 04:10 03/20/19 04:10 Additional Lab Results: 03/20/19 03/20/19 11:26 11:34 NT-Pro-B Natriuret Pep 1110 H Ur Random Creatinine 31.8 Ur Random Sodium 58 - Impression Impressions: Urinalysis appears negative and urine culture is negative at one day so I doubt there is urinary tract infection. - Imaging X-Ray Status: Image Reviewed by Me (Chest x-ray, on my view, may be more consistent with fluid overload) Objective : Exam - General General Appearance: No Acute Distress Additional General Exam Details: Resting comfortably on vent, sedated. We stopped Versed and had not given fentanyl since early this morning. Vital Signs - Last Taken Temperature 98.4 F 03/20/19 13:00 Pulse Rate 100 03/20/19 13:00 Respiratory Rate 14 03/20/19 13:00 Blood Pressure 134/73 03/20/19 13:00 Pulse Ox 97 03/20/19 13:00 - Head Head Exam: Normal Inspection, Normocephalic, Atraumatic - ENT ENT Exam: Mucous Membranes Dry - Neck Neck Exam: JVP is not Raised - Respiratory Respiratory Exam: Clear to Auscultation - Bilaterally, Breathing Non Labored - Cardiovascular Cardiovascular Exam: RRR, No Murmur, No Clicks, No Gallops, No Rubs, No JVD - GI/Abdominal GI/Abdominal Exam: Normal Bowel Sounds, Non Tender, Non Distended, Soft - Extremities Extremities Exam: No Clubbing Present, No Cyanosis Present, +2 Edema (In legs and arms) - Neurological Additional Neurological Exam Details: On ventilator. Sedation is been stopped for a couple of hours now. No response to pain stimuli - Central Line Examination Central Line Type: Triple Lumen Cath Central Line Location: Internal jugular (R) Central Line Site Observations: Asymptomatic Assessment and Plan - Patient Problems (1) Respiratory failure Current Visit: Yes Status: Acute Code(s): J96.90 - Respiratory failure, unspecified, unspecified whether with hypoxia or hypercapnia Qualifiers: Chronicity: acute Respiratory failure complication: hypoxia Qualified Code(s): J96.01 - Acute respiratory failure with hypoxia (2) Acute renal failure Current Visit: Yes Status: Acute Code(s): N17.9 - Acute kidney failure, unspecified Qualifiers: Acute renal failure type: unspecified Qualified Code(s): N17.9 - Acute kidney failure, unspecified (3) Rhabdomyolysis Current Visit: Yes Status: Acute Code(s): M62.82 - Rhabdomyolysis Qualifiers: Rhabdomyolysis type: non-traumatic Qualified Code(s): M62.82 - Rhabdomyolysis (4) Dementia Current Visit: Yes Status: Acute Code(s): F03.90 - Unspecified dementia without behavioral disturbance Qualifiers: Dementia type: Alzheimer's disease Alzheimer's disease onset: early-onset Dementia behavioral disturbance: with behavioral disturbance Qualified Code(s): G30.0 - Alzheimer's disease with early onset; F02.81 - Dementia in other diseases classified elsewhere with behavioral disturbance (5) Traumatic brain injury Current Visit: Yes Status: Acute Code(s): S06.9X9A - Unspecified intracranial injury with loss of consciousness of unspecified duration, initial encounter Qualifiers: Encounter type: subsequent encounter Loss of consciousness presence/duration: with LOC of unspecified duration Qualified Code(s): S06.9X9D - Unspecified intracranial injury with loss of consciousness of unspecified duration, subsequent encounter (6) Osteoarthritis Current Visit: Yes Status: Acute Code(s): M19.90 - Unspecified osteoarthritis, unspecified site Qualifiers: Osteoarthritis location: unspecified site Osteoarthritis type: primary Qualified Code(s): M19.91 - Primary osteoarthritis, unspecified site (7) Dehydration Current Visit: Yes Status: Acute Code(s): E86.0 - Dehydration (8) Rhabdomyolysis due to statin therapy Current Visit: Yes Status: Acute Code(s): M62.82 - Rhabdomyolysis (9) Hypernatremia Current Visit: Yes Status: Acute Code(s): E87.0 - Hyperosmolality and hy pernatremia (10) Expressive aphasia Current Visit: Yes Status: Chronic Code(s): R47.01 - Aphasia (11) Alcohol withdrawal Current Visit: Yes Status: Ruled-out Code(s): F10.239 - Alcohol dependence with withdrawal, unspecified Qualifiers: Complication of substance-induced condition: with delirium Qualified Code(s): F10.231 - Alcohol dependence with withdrawal delirium - Assessment / Plan Additional Assessment/Plan Details: Acute renal failure seems to be getting worse in terms of creatinine, but urine output is picking up. We have another lab set for today and I'm wondering if we are hitting a peak in terms of creatinine elevation related to statin induced rhabdomyolysis, anti-inflammatory, dehydration Hold sedation and weight patient up and start weaning trial. Work towards extubation. In my discussions with his sister and his nephew, they are in agreement that if the patient does not show great signs of improvement, they are thinking about treatment of primary symptoms of pain and discomfort only and withdrawing other forms of care. At this time, I am directed to change CODE STATUS to DO NOT RESUSCITATE which I agree with, and certainly the patient expressed his sister on 2 separate occasions, well-documented now. Spoke with the eICU, and they would like the patient off of benzodiazepines before any further care decisions are made in terms of long-term plan. They estimated that it may take the patient 24-48 hours to do weaning trials depending on sedation levels. They felt that daily interruption of sedation was indicated. We will give Lasix today as he is fluid overloaded. If the patient develops any hypotension, may consider albumin but at this point that is not present. Again, recheck kidney function. Labs in a.m. Overall prognosis still guarded. Critical care time, 60 minutes, no overlap
[2019-03-20 14:58] LABS: BLOOD UREA NITROGEN 38 mg/dL (7-22); BUN/CREATININE RATIO 10.27 (6-20)
--- NOTE | 2019-03-20 17:25 | DI ---
CT Head WO Contrast 03/20/2019 4:02 PM History: [facility] – [place] ^AMS, sedated, question hemorrhage or stroke Comparison: 03/18/2019. Procedure: Noncontrast CT images through the head were reviewed. Findings: There is no acute intracranial hemorrhage or extra-axial fluid collection. The ventricles a re symmetric. There is moderate global atrophy which is within the expected range for age. Decreased attenuation in the periventricular and subcortical white matter is consistent with moderate chronic s mall vessel ischemic changes. There is otherwise normal dow-white differentiation without focal mass or mass-effect. The visualized portions of the mastoid air cells are clear. Corticated remodeling of the right lateral maxillary sinus is most likely the sequela of remote trauma. There are air-fluid l evels in the bilateral maxillary and sphenoid sinuses. Atheromatous calcifications are noted in the i ntracranial vasculature. Review of the osseous structures demonstrate no depressed calvarial fracture or aggressive osseous lesion. The facial soft tissues are unremarkable. There are postsurgical leal es of the bilateral globes. Tubing from endotracheal and enteric tubes course through the oropharynx and extend below the level of imaging. Impression: 1. No acute intracranial findings. 2. Age related senescent changes as above. 3. Acute sinusitis.
[2019-03-20] MEDS ORDERED: ACETAMINOPHEN 325 MG TABLET PO PRN (19:32)
[2019-03-20 19:58] LABS: BLOOD UREA NITROGEN 41 mg/dL (7-22); BUN/CREATININE RATIO 10.25 (6-20)
[2019-03-20] MEDS ORDERED: ACETAMINOPHEN 650 MG SUPPOSITORY RECTAL PRN (21:40)
[2019-03-20] MEDS ORDERED: Acetaminophen 1000mg Inj 1,000 MG/100 ML VIAL IV PRN (21:56)
--- NOTE | 2019-03-20 22:54 | DI ---
EXAM: XR Abdomen, 1 View CLINICAL HISTORY: ITS.REASON hypoactive bowel sounds Physician Notes: Tech Comments: TECHNIQUE: Frontal supine view of the abdomen/pelvis. COMPARISON: No relevant prior studies available. FINDINGS: Lower thorax: Left basilar infiltrate. Gastrointestinal tract: Unremarkable. Bones/joints: No acute fracture. Tubes, lines and devices: Enteric tube in the distal esophagus. Sherwood catheter. IMPRESSION: Enteric tube in the distal esophagus. Advance. <MYCVCSECTION> Critical Value Communications 03/20/19 23:01 Verify Receipt with Nurse Verified receipt with HARRY Rucker in [facility] for DAVION Muniz on 03/20 23:01 (-06:00)
[2019-03-20] MEDS ORDERED: Sodium Chloride 0.9% 1,000 ML PRIMARY IV ONE (23:02)
[2019-03-20] MEDS: Cefepime Inj 2 GM in Sodium Chloride 0.9% 100 ML IV SCH (23:20)
--- NOTE | 2019-03-20 23:33 | DI ---
EXAM: US Duplex Bilateral Lower Extremity Veins CLINICAL HISTORY: ITS.REASON fever, immobilized, question DVT, leg swelling Physician Notes: bilateral LE.Tech Comments: TECHNIQUE: Real-time duplex ultrasound scan of the bilateral lower extremity veins integrating B-mode two-dimensional vascular structure, Doppler spectral analysis, color flow Doppler imaging and compression. COMPARISON: No relevant prior studies available. FINDINGS: Right deep veins: No DVT in the right common femoral, femoral, proximal deep femoral or popliteal veins. Thrombus in the posterior tibial vein Right superficial veins: Unremarkable. No thrombus in the visualized right great saphenous vein. Left deep veins: Unremarkable. No DVT in the left common femoral, femoral, proximal deep femoral or popliteal veins. The veins demonstrate normal color flow, are normally compressible, with normal phasic flow and/or augmentation response. Left superficial veins: Unremarkable. No thrombus in the visualized left great saphenous vein. Soft tissues: No acute findings. IMPRESSION: Positive for DVT in the right lower extremity. Thrombus in the posterior tibial vein. No DVT demonstrated in the left lower extremity.. <MYCVCSECTION> Critical Value Communications 03/20/19 23:40 Verify Receipt with Nurse Verified receipt with DAVION Hernandez in ICU on 03/20 23:40 (-06:00)
[2019-03-20] MEDS: BISACODYL 10 MG SUPPOSITORY RECTAL SCH (23:45)
[2019-03-21] MEDS: metroNIDAZOLE 500mg (Premix) 500 MG/100 ML BAG IV SCH ×3 (00:03→17:31)
[2019-03-21] MEDS: Heparin Drip 25,000 UNIT/500 ML BAG IV SCH (00:30)
[2019-03-21 05:51] LABS: BASOPHILS # (AUTO) 0.01 10*3/UL; BASOPHILS % (AUTO) 0.1 % (0-1); EOSINOPHILS # (AUTO) 0.05 10*3/UL; EOSINOPHILS % (AUTO) 0.7 % (0-8); Hematocrit [HCT] 38.8 % (42.0-52.0); LYMPHOCYTES # (AUTO) 0.54 10*3/uL; MEAN CORPUSCULAR HEMOGLOBIN 30.6 PG (27-31); MEAN CORPUSCULAR HGB CONC 33.5 g/dL (33-37); MEAN CORPUSCULAR VOLUME 91.3 FL (80-90); MONOCYTES # (AUTO) 0.51 10*3/UL (0.3-0.8); MONOCYTES % (AUTO) 7.5 % (5-15); NEUTROPHILS # (AUTO) 5.65 10*3/UL; NEUTROPHILS % (AUTO) 83.4 % (50-80); RED BLOOD COUNT 4.25 10^6/uL (4.70-6.10)
[2019-03-21 06:39] LABS: BLOOD UREA NITROGEN 45 mg/dL (7-22); BUN/CREATININE RATIO 11.25 (6-20)
[2019-03-21 06:45] LABS: PLATELET MORPHOLOGY COMMENT NORMAL MORPHOLOGY (NORM); RBC MORPHOLOGY COMMENT NORMAL MORPHOLOGY (NORM); WBC MORPHOLOGY COMMENT NORMAL MORPHOLOGY (NORM)
--- NOTE | 2019-03-21 08:55 | DI ---
EXAM: XR Chest, 1 View CLINICAL HISTORY: ITS.REASON intubated, question pneumonia Physician Notes: Tech Comments: TECHNIQUE: Frontal view of the chest. COMPARISON: 03/20/19 FINDINGS: Lungs: Unremarkable. No consolidation. Pleural space: Unremarkable. No pneumothorax. Heart: Slight improvement of retrocardiac opacity. Cardiovascular silhouette within normal limits. Mediastinum: Unremarkable. Bones/joints: Unremarkable. Vasculature: Calcified tortuous thoracic aorta, unchanged. Tubes, lines and devices: Endotracheal tube, unchanged in position and satisfactory NG tube, tip in the proximal stomach. The NG tube has been advanced compared to the prior study. The side-port projects distal to the GE junction. Right-sided central venous catheter, tip in the SVC/atrial junction, unchanged. IMPRESSION: Interval advancement of the NG tube, tip in the stomach. Remaining support apparatus, unchanged. Improvement of left basilar airspace disease.
[2019-03-21] MEDS: TAMSULOSIN 0.4 MG CAPSULE PO SCH (08:56)
[2019-03-21] MEDS: Multivitamin Tab 1 TAB PO SCH (08:56)
[2019-03-21] MEDS: CYANOCOBALAMIN (VITAMIN B-12) 1,000 MCG TABLET.ER PO SCH (08:57)
[2019-03-21] MEDS: BISACODYL 10 MG SUPPOSITORY RECTAL SCH (09:15)
[2019-03-21] MEDS: RIVASTIGMINE 4.6 MG/24 HR PATCH TRANSDERM SCH (09:57)
[2019-03-21] MEDS: Cefepime Inj 2 GM in Sodium Chloride 0.9% 100 ML IV SCH ×2 (10:48→23:27)
[2019-03-21] MEDS ORDERED: Magnesium Sulfate 2gm (Premix) 2 GM/50 ML BAG IV ONE ×2 (13:46→15:55)
[2019-03-21 16:11] LABS: VENOUS PH 7.39 (7.32-7.42)
[2019-03-21 18:14] LABS: BLOOD UREA NITROGEN 54 mg/dL (7-22); BUN/CREATININE RATIO 14.21 (6-20)
--- NOTE | 2019-03-21 21:16 | PDOC(PROG) ---
Date of Service: 03/21/19 Time of Service: 16:30 Interval History: after more than 24 hours, no change in mental status. no response to pain. not breathing over the vent. CT head without hemorrhage had fevers, question related to DVT vs. possible aspiration, but no great infiltrate on CXR. cefepime and flagyl started diuresing, but no improvement in creatinine. discussed with eICU in depth Objective : Data - Labs CBC and BMP: 03/21/19 05:45 03/21/19 05:45 - Imaging X-Ray Status: Image Reviewed by Me (chest X-ray shows tubes and lines in correct positions, no infiltrate.) Objective : Exam - General General Appearance: No Acute Distress Additional General Exam Details: Vital Signs - Last Taken Temperature 98.9 F 03/21/19 16:00 Pulse Rate 96 03/21/19 16:00 Respiratory Rate 16 03/21/19 16:00 Blood Pressure 133/81 03/21/19 16:00 Pulse Ox 97 03/21/19 16:00 - Eye Eye Exam: No Scleral Icterus - ENT ENT Exam: Mucous Membranes Moist Eye: Abnormal Pupil: Bilateral Eye (pupils are pinpoint bilaterally) - Neck Neck Exam: JVP is not Raised - Respiratory Respiratory Exam: Clear to Auscultation - Bilaterally, Breathing Non Labored - Cardiovascular Cardiovascular Exam: RRR, No Murmur, No Clicks, No Gallops, No Rubs, No JVD Additional Cardiovascular Details: occasional PVCs - GI/Abdominal GI/Abdominal Exam: Normal Bowel Sounds, Non Tender, Non Distended, Soft - Exam: Sherwood Catheter in Place (urine clear) - Extremities Extremities Exam: No Clubbing Present, No Edema Present, No Cyanosis Present - Neurological Additional Neurological Exam Details: on vent, off sedation for over 24 hours no response to pain, not resisting the ETT on vent pupils pinpoint no spontaneous limb movements Assessment and Plan - Patient Problems (1) Respiratory failure Current Visit: Yes Status: Acute Code(s): J96.90 - Respiratory failure, unspecified, unspecified whether with hypoxia or hypercapnia Qualifiers: Chronicity: acute Respiratory failure complication: hypoxia Qualified Code(s): J96.01 - Acute respiratory failure with hypoxia (2) Acute renal failure Current Visit: Yes Status: Acute Code(s): N17.9 - Acute kidney failure, unspecified Qualifiers: Acute renal failure type: unspecified Qualified Code(s): N17.9 - Acute kidney failure, unspecified (3) Rhabdomyolysis Current Visit: Yes Status: Acute Code(s): M62.82 - Rhabdomyolysis Qualifiers: Rhabdomyolysis type: non-traumatic Qualified Code(s): M62.82 - Rhabdomyolysis (4) Dementia Current Visit: Yes Status: Acute Code(s): F03.90 - Unspecified dementia without behavioral disturbance Qualifiers: Dementia type: Alzheimer's disease Alzheimer's disease onset: early-onset Dementia behavioral disturbance: with behavioral disturbance Qualified C ode(s): G30.0 - Alzheimer's disease with early onset; F02.81 - Dementia in other diseases classified elsewhere with behavioral disturbance (5) Traumatic brain injury Current Visit: Yes Status: Acute Code(s): S06.9X9A - Unspecified intracranial injury with loss of consciousness of unspecified duration, initial encounter Qualifiers: Encounter type: subsequent encounter Loss of consciousness presence/duration: with LOC of unspecified duration Qualified Code(s): S06.9X9D - Unspecified intracranial injury with loss of consciousness of unspecified duration, subsequent encounter (6) Osteoarthritis Current Visit: Yes Status: Acute Code(s): M19.90 - Unspecified osteoarthritis, unspecified site Qualifiers: Osteoarthritis location: unspecified site Osteoarthritis type: primary Qualified Code(s): M19.91 - Primary osteoarthritis, unspecified site (7) Dehydration Current Visit: Yes Status: Acute Code(s): E86.0 - Dehydration (8) Rhabdomyolysis due to statin therapy Current Visit: Yes Status: Acute Code(s): M62.82 - Rhabdomyolysis (9) Hypernatremia Current Visit: Yes Status: Acute Code(s): E87.0 - Hyperosmolality and hypernatremia (10) Expressive aphasia Current Visit: Yes Status: Chronic Code(s): R47.01 - Aphasia (11) Alcohol withdrawal Current Visit: Yes Status: Ruled-out Code(s): F10.239 - Alcohol dependence with withdrawal, unspecified Qualifiers: Complication of substance-induced condition: with delirium Qualified Code(s): F10.231 - Alcohol dependence with withdrawal delirium - Assessment / Plan Additional Assessment/Plan Details: [facility] todaywe both agree there is no improvement in neurological status but no evidence for why this is. may be sedation from verced still?, maybe some sort of brainstem event or anoxic injury? plan for now is to continue treatment to Saturday to get MRI this seems ample time to see if patient can recover spontaneous breathing and movement on his own without the influence of sedatives for mechanical ventilation labs BID start tube feeding we did get DNR status, I would recommend considering extubation if there is no improvement by Saturday. continue heparin for DVT continue antibiotics with GNR coverage, coverage for aspiration free water flushesa prognosis is grim right now will discuss with family as possible CCT, 45 min, no overlap
[2019-03-22] MEDS: Heparin Drip 25,000 UNIT/500 ML BAG IV SCH (00:43)
[2019-03-22] MEDS ORDERED: SODIUM CL FOR INHALATION 15 ML NEB NEB ONE (00:57)
[2019-03-22] MEDS: metroNIDAZOLE 500mg (Premix) 500 MG/100 ML BAG IV SCH ×2 (01:11→08:40)
[2019-03-22 05:58] LABS: VENOUS PH 7.4 (7.32-7.42)
[2019-03-22 06:05] LABS: BASOPHILS # (AUTO) 0.02 10*3/UL; BASOPHILS % (AUTO) 0.3 % (0-1); EOSINOPHILS # (AUTO) 0.15 10*3/UL; EOSINOPHILS % (AUTO) 2.2 % (0-8); Hematocrit [HCT] 38.3 % (42.0-52.0); Hemoglobin [HGB] 12.7 g/dL (14.0-18.0); LYMPHOCYTES # (AUTO) 0.56 10*3/uL; MEAN CORPUSCULAR HEMOGLOBIN 30.2 PG (27-31); MEAN CORPUSCULAR HGB CONC 33.2 g/dL (33-37); MEAN CORPUSCULAR VOLUME 91.2 FL (80-90); MEAN PLATELET VOLUME 10.2 FL (7.4-12.2); MONOCYTES # (AUTO) 0.67 10*3/UL (0.3-0.8); MONOCYTES % (AUTO) 9.8 % (5-15); NEUTROPHILS # (AUTO) 5.46 10*3/UL; NEUTROPHILS % (AUTO) 79.4 % (50-80)
[2019-03-22 06:15] LABS: BLOOD UREA NITROGEN 58 mg/dL (7-22); BUN/CREATININE RATIO 16.57 (6-20); SERUM ALBUMIN 3.3 g/dL (3.5-4.8)
[2019-03-22 06:35] LABS: PLATELET MORPHOLOGY COMMENT NORMAL MORPHOLOGY (NORM); RBC MORPHOLOGY COMMENT NORMAL MORPHOLOGY (NORM); WBC MORPHOLOGY COMMENT NORMAL MORPHOLOGY (NORM)
[2019-03-22] MEDS ORDERED: PANTOPRAZOLE IV 40 MG VIAL IVP SCH (07:00)
[2019-03-22 08:05] VITALS: BP 145/83; RESP 18; TEMP 98.6; O2SAT 98
[2019-03-22] MEDS: BISACODYL 10 MG SUPPOSITORY RECTAL SCH (08:40)
[2019-03-22] MEDS: Multivitamin Tab 1 TAB PO SCH (08:41)
[2019-03-22] MEDS: TAMSULOSIN 0.4 MG CAPSULE PO SCH (08:41)
[2019-03-22] MEDS: CYANOCOBALAMIN (VITAMIN B-12) 1,000 MCG TABLET.ER PO SCH (08:41)
--- NOTE | 2019-03-22 09:07 | PDOC(PROG) ---
Date of Service: 03/22/19 Time of Service: 09:15 Interval History: Subjective Patient is off sedation for more than 48 hours now. He is still not showing any response to voice, tactile stimuli or painful stimuli. His tone is flaccid. His pupil are small and sluggish response to light. [facility]. I did speak also with his nephew who is making the decisions for him. Did discuss his current medical condition, they decided on comfort care, they said what they will relay the message to the rest of the family, unfortunately they said they can't be here. I think we'll start him on IV morphine drip and then we'll extubate him. Objective : Data - Labs CBC and BMP: 03/22/19 05:45 03/22/19 05:45 Objective : Exam - General Additional General Exam Details: Patient is unconscious not responding to stimuli. - Head Head Exam: Normal Inspection - Neck Neck Exam: Normal Inspection - Respiratory Respiratory Exam: Clear to Auscultation - Bilaterally - Cardiovascular Cardiovascular Exam: RRR - GI/Abdominal GI/Abdominal Exam: Normal Bowel Sounds, Non Tender, Non Distended, Soft, No Organomegaly - Rectal Rectal Exam: Deferred - External Exam: Deferred - Extremities Extremities Exam: Normal Inspection - Neurological Additional Neurological Exam Details: He is comatose Shows no response to painful tactile voice stimuli. Flaccid tone. Could not elicit reflexes. Pupils small sluggish response to light - Integumentary Integumentary Exam: Normal Color Assessment and Plan - Patient Problems (1) Dementia Current Visit: Yes Status: Acute Comment: As I said per my discussion with the nephew patient now is comfort care. We'll write for morphine drip and will extubate after that. Will write for Ativan as needed in case there is any agitation later on. DC IV fluid, DC antibiotics. DC NG tube and feeding. Code(s): F03.90 - Unspecified dementia without behavioral disturbance Qualifiers: Dementia type: Alzheimer's disease Alzheimer's disease onset: early-onset Dementia behavioral disturbance: with behavioral disturbance Qualified Code(s): G30.0 - Alzheimer's disease with early onset; F02.81 - Dementia in other diseases classified elsewhere with behavioral disturbance
[2019-03-22] MEDS ORDERED: Sodium Chloride 0.9% 1,000 ML PRIMARY IV SCH (09:15)
[2019-03-22] MEDS ORDERED: Morphine Drip 250mg/250ml 250 MG/250 ML PLAST..BAG IV SCH (09:15)
[2019-03-22] MEDS ORDERED: Hypromellose/Glycerin/PEG 400 Ophth Soln 15 ML DROPS EACH EYE SCH (09:15)
--- NOTE | 2019-03-22 09:26 | DI ---
PORTABLE AP SEMIUPRIGHT CXR: HISTORY: 73-year-old male with respiratory failure. COMPARISON: 03/21/2019, 03/20/2019, 03/18/2019. FINDINGS: Endotracheal tube, right internal jugular central venous catheter, and enteric tubes are in grossly stable and satisfactory positions. Ill-defined mild bibasilar lung opacities appear grossly stable, allowing for differences in patient position and technique. No obvious pneumothorax or effusion; bilateral skinfold lines are noted. Heart size is normal and stable. There appears to be mild abnormal widening of the right glenohumeral joint, similar to yesterday's exam. IMPRESSION: 1. No significant short interval change. 2. Possible mild abnormal widening of the right glenohumeral joint, grossly stable since yesterday's exam.
[2019-03-22] MEDS ORDERED: Keys-Morphine Palliative Care ONE (09:29)
[2019-03-22] MEDS: LORazepam 2 MG/1 ML VIAL IVP PRN ×2 (09:34→10:52)
--- NOTE | 2019-03-22 11:39 | DCSUMMARY ---
Hospitalization Summary Admit Date: 03/18/2019 Discharge Date: 03/22/19 Hospital Course: diagnoses 1. History of traumatic brain injury 2. History of dementia 3. Acute renal failure 4. Pneumonia 5. DVT right lower extremity 6. Possible stroke 7. Hypernatremia Hospital course This is a 73 years old male with medical history significant for history of traumatic brain injury, history of dementia who was recently admitted to [facility] to the Alzheimer care unit. Apparently his communication is limited because of his dementia. He was brought to the hospital for evaluation and in the ER was found to have hypernatremia and was admitted to the hospital. Was admitted by Dr. Roberts please see his note. Apparently when he got to the floor he had significant agitation and aggressive behavior towards the nursing staff. He was not oriented to time place or person he received Haldol and Valium to calm him down. There was a question of drinking so he was put on the CIWA protocol and he was started also on Precedex. After that he developed respiratory failure and he wa s intubated. X-ray later on showed possibility of pneumonia so was put on IV antibiotics. His kidney function also deteriorated reached a creatinine of 4. In addition to IV fluid he received free water because of hypernatremia. Initially he was full code but then Dr. Roberts spoke with his nephew who was making decision for the patient and then his status was changed to the DO NOT RESUSCITATE. They continued with the same plan however it was noticed that ,after holding the sedation, he is unresponsive. Eventually all sedation were discontinued and he remained unresponsive. I took over her on the 26. The patient was unresponsive he was off the sedation for more than 48 hours. There was no response to verbal, voice or tactile stimuli or painful stimuli. He was flaccid. No reflexes could be elicited. I did discuss it with the eICU physician potential reasoning for unresponsive in addition to medication include encephalitis, versus meningitis versus stroke or seizures patient needs more testing including MRI, LP, EEG which we don't have in our facility that require the patient to be transferred elsewhere. Per my discussion with Dr. Roberts this was discussed with the patient nephew about transferring him elsewhere they refused. I talked to the family to update them about his clinical condition after giving them the update they decided on comfort care so the patient was put on comfort care and he was extubated and passed shortly after extubation. Exam - Vitals Vital Signs: Vital Signs Temperature 98.6 F Temperature Source Oral Pulse Rate [Apical] 85 Pulse Rate [Telemetry] 90 Pulse Rate [Pulse Oximeter] 93 Pulse Rate 84 Respiratory Rate 18 Blood Pressure [Right Arm] 149/86 Blood Pressure [Left Calf] 143/83 Blood Pressure [Left Arm] 145/83 Blood Pressure 176/91 Pulse Ox 98 Oxygen Flow Rate 15 Oxygen Delivery Method Mechanical Ventilator Weight 191 lb 8 oz Patient Problems - Patient Problem List (1) Dementia Status: Acute Code(s): F03.90 - Unspecified dementia without behavioral disturbance Qualifiers: Dementia type: Alzheimer's disease Alzheimer's disease onset: early-onset Dementia behavioral disturbance: with behavioral disturbance Qualified Code(s): G30.0 - Alzheimer's disease with early onset; F02.81 - Dementia in other diseases classified elsewhere with behavioral disturbance Category: Medical
== END 2019-03-22 11:09 | disposition expired | DRG 640 ==
LOC: ER 02:26 → MED/SURG 04:32 → ICU 14:40
PROVIDERS: ADMIT Family Medicine; ATTEND Family Medicine